=== PATIENT | female | born 1965 | race African-American/Black ===

== ENCOUNTER 2019-12-16 10:10 | Emergency (ER) | payer OTHER ==
[~2019-12-16] VITALS: Ht 149.9 cm; Wt 68.0 kg
[~2019-12-16 10:10] MED LIST: FLEXERIL5 M1 PO; KETOROLAC60 MG/2 ML IJ; MEDDOSEPAK PO; NAPROSYN500 MG PO; SOLU-MEDROL125 MG IM
[2019-12-16] MEDS ORDERED: FLEXERIL5 M1 PO (11:14)
[2019-12-16] MEDS ORDERED: NAPROXEN DR500 MG PO (11:14)
[2019-12-16 12:00] VITALS: BP 180/81
== END 2019-12-16 12:00 | disposition home or self-care (01) | DRG 563 ==
LOC: ED 10:10
DX: S39.012A Strain of muscle, fascia and tendon of lower back, initial encounter (principal); X50.0XXA Overexertion from strenuous movement or load, initial encounter; Y93.F2 Activity, caregiving, lifting; Y92.129 Unspecified place in nursing home as the place of occurrence of the external cause; Y99.0 Civilian activity done for income or pay

== ENCOUNTER 2020-06-21 14:21 | Emergency (ER) | payer OTHER ==
[~2020-06-21] VITALS: Ht 149.9 cm; Wt 66.2 kg
[~2020-06-21 14:21] MED LIST changes: +NAPROXEN DR500 MG PO
[2020-06-21] MEDS ORDERED: OFLOXACIN0.3 % OD (15:44)
[2020-06-21 16:19] VITALS: BP 137/71
== END 2020-06-21 16:19 | disposition home or self-care (01) | DRG 125 ==
LOC: ED 14:21
DX: H10.9 Unspecified conjunctivitis (principal); S05.91XA Unspecified injury of right eye and orbit, initial encounter; F17.200 Nicotine dependence, unspecified, uncomplicated; W50.0XXA Accidental hit or strike by another person, initial encounter; Y93.F9 Activity, other caregiving; Y92.9 Unspecified place or not applicable; Y99.0 Civilian activity done for income or pay

== ENCOUNTER 2023-05-17 04:48 | Emergency (ER) | payer OTHER ==
[~2023-05-17] VITALS: Ht 149.9 cm; Wt 70.0 kg
[~2023-05-17 04:48] MED LIST changes: +OFLOXACIN0.3 % OD
[2023-05-17 04:55] VITALS: BP 161/106
[2023-05-17 05:00] VITALS: BP 160/102
[2023-05-17 05:15] VITALS: BP 165/112
[2023-05-17] MEDS ORDERED: VOLTAREN - GENE75 MG PO (06:18)
[2023-05-17 06:23] VITALS: BP 160/102
== END 2023-05-17 06:57 | disposition home or self-care (01) | DRG 563 ==
LOC: ED 04:48
DX: S46.912A Strain of unspecified muscle, fascia and tendon at shoulder and upper arm level, left arm, initial encounter (principal); S16.1XXA Strain of muscle, fascia and tendon at neck level, initial encounter; I10 Essential (primary) hypertension; X50.0XXA Overexertion from strenuous movement or load, initial encounter; Y93.F2 Activity, caregiving, lifting; Y92.129 Unspecified place in nursing home as the place of occurrence of the external cause; Y99.0 Civilian activity done for income or pay; Z72.0 Tobacco use